=== PATIENT | male | born 1965 | race Caucasian/White ===

== ENCOUNTER → 2018-05-05 | Outpatient (CLI) | payer BC ==
--- NOTE | 2018-05-05 16:57 | NM ---
EXAMINATION TYPE: NM bone scan whole body, NM bone SPECT DATE OF EXAM: 05/05/2018 COMPARISON: Lumbar spine radiograph 04/28/2018 HISTORY: 52-year-old male spondylosis, pain. Wedge compression fracture of L4 lumbar vertebra. Technique: Delayed whole-body scanning was performed following the injection of 24.5 mCi Tc 99m MDP. Images acquired 3 hours post injection. SPECT imaging was performed. FINDINGS: Focal intense abnormal uptake involving the right posterior elements of T10 and linear abnormal incre ased uptake of L4 corresponding to known vertebral compression fracture. There is some degenerative a ctivity at the sternoclavicular joints. No additional suspicious tracer activity is identified. Mild uterine contamination is noted. IMPRESSION: 1. Linear abnormal uptake of L4 compatible with known superior endplate fracture. 2. Focal abnormal uptake involving the right T10 posterior elements. Consider CT or MRI to further ev aluate.
== END | disposition home or self-care (01) ==
LOC: RADNMMAIN 09:45
PROVIDERS: ATTEND Physical Medicine & Rehabilitation
DX: S32.040A Wedge compression fracture of fourth lumbar vertebra, initial encounter for closed fracture (principal); R94.8 Abnormal results of function studies of other organs and systems; M47.817 Spondylosis without myelopathy or radiculopathy, lumbosacral region; M41.26 Other idiopathic scoliosis, lumbar region
CPT/HCPCS: 78306; 78320; A9503

== ENCOUNTER → 2018-05-19 | Outpatient (CLI) | payer BC ==
[2018-05-19 13:35] LABS: Blood Urea Nitrogen 20 mg/dL (9-20)
== END ==
LOC: LABWHC1 12:54
PROVIDERS: ATTEND Physical Medicine & Rehabilitation
DX: Z01.812 Encounter for preprocedural laboratory examination (principal); N28.9 Disorder of kidney and ureter, unspecified
CPT/HCPCS: 36415; 82565; 84520

== ENCOUNTER → 2018-05-28 | Outpatient (CLI) | payer BC ==
--- NOTE | 2018-05-28 13:52 | CT ---
EXAMINATION TYPE: CT thoracic spine wo con DATE OF EXAM: 05/28/2018 COMPARISON: Nuclear medicine SPECT scan 05/05/2018 HISTORY: Wedge compression fracture of unspecified thoracic vertebra CT DLP: 589.9 mGycm Automated exposure control for dose reduction was used. FINDINGS: Vertebral body heights are preserved. Disc heights have mild diffuse narrowing. Vertebral body alignm ent is normal. No suspicious wedge deformity is evident. Minimal wedging of T11 may be present. No ac samish compression deformity is evident however. Exam is compared to the SPECT imaging of 05/05/2018. No suspicious abnormality at the left posterior T10 level is evident. IMPRESSION: 1. CT THORACIC SPINE APPEARS WITHIN NORMAL LIMITS. 2. NO SUSPICIOUS ABNORMALITY AT THE T10 LEVEL TO ACCOUNT FOR THE UPTAKE ON THE NUCLEAR MEDICINE BONE SCAN. THIS MAY BE RELATED TO CHANGES AT THE [place].
== END ==
LOC: RADCTMAIN 09:04
PROVIDERS: ATTEND Physical Medicine & Rehabilitation
DX: S22.000A Wedge compression fracture of unspecified thoracic vertebra, initial encounter for closed fracture (principal)
CPT/HCPCS: 72128

== ENCOUNTER 2020-03-23 13:31 | Inpatient (IN) | payer BC, OTHER ==
[2020-03-23] MEDS ORDERED: SODIUM CHLORIDE 0.9% 1,000 ML IV STA (13:45)
[2020-03-23] MEDS ORDERED: ONDANSETRON 4 MG/2 ML VIAL IVP STA (13:51)
[2020-03-23 13:59] LABS: Glucose,Whole Blood 138 mg/dL (75-99)
--- NOTE | 2020-03-23 14:19 | ED ---
General Adult HPI - General Chief complaint: Weakness Stated complaint: weakness Time Seen by Provider: 03/23/20 13:33 Source: patient, EMS Mode of arrival: EMS Limitations: physical limitation - History of Present Illness Initial comments: Patient is a 54-year-old male with past mental history of hypertension presents emergency department from a [employer]. EMS was called to the store for a patient was weak and sustained a fall. The patient states he's had intractable nausea, vomiting and diarrhea for the past 3 days. He denies hematemesis. No melenic stools or hematochezia. States he possibly could have eaten some tainted foods. Denies any recent travel or sick contacts with similar symptoms. No recent antibiotic use. Denies any abdominal pain. No history of GI bleeding. Denies any fevers or chills. Denies any changes in his urination. He went to a [employer] where he was so weak that his knees gave out on him. Reports that this is common for him to happen. He denies any traumatic injuries from the fall. She presents to the emergency department and is covered from head to toe in fecal material. He denies any chest pain or shortness of breath. No back or flank pain. No other alleviating, precipitating or modifying factors - Related Data Home Medications Medication Instructions Recorded Confirmed No Known Home Medications 03/23/20 03/23/20 Allergies Allergy/AdvReac Type Severity Reaction Status Date / Time No Known Allergies Allergy Verified 03/23/20 16:24 Review of Systems ROS Statement: Those systems with pertinent positive or pertinent negative responses have been documented in the HPI. ROS Other: All systems not noted in ROS Statement are negative. General Exam Limitations: physical limitation General appearance: alert, anxious Head exam: Present: atraumatic, normocephalic Eye exam: Present: PERRL, EOMI ENT exam: Present: mucous membranes dry Neck exam: Absent: tenderness, meningismus Respiratory exam: Present: normal lung sounds bilaterally Cardiovascular Exam: Present: normal rhythm, tachycardia GI/Abdominal exam: Present: soft. Absent: tenderness, guarding, rebound, rigid Rectal exam: Absent: black stool, bloody stool Extremities exam: Present: normal inspection. Absent: tenderness Neurological exam: Present: alert Psychiatric exam: Present: flat affect Skin exam: Present: other (covered in fecal material) Course Vital Signs 03/23/20 03/23/20 03/23/20 13:34 15:19 15:53 Temperature 98.1 F Pulse Rate 133 H 119 H 118 H Respiratory 18 18 18 Rate Blood Pressure 143/128 97/77 95/81 O2 Sat by Pulse 97 94 L 96 Oximetry 03/23/20 03/23/20 17:09 17:48 Temperature 99.5 F 99.0 F Pulse Rate 105 H 115 H Respiratory 18 18 Rate Blood Pressure 125/94 128/104 O2 Sat by Pulse 96 94 L Oximetry EKG Findings - EKG Comments: EKG Findings:: EKG demonstrates sinus tachycardia with ventricular rate of 133. CO interval 118. QRS 94. QTC of 464. No acute ST segment elevation or depression Medical Decision Making - Medical Decision Making Upon arrival patient is placed in room 6. A thorough history and physical exam was performed. Patient is cleaned up. Provided established. Patient was given a 3 L bolus of normal saline followed by 100 mL an hour. Laboratory studies were conducted. Patient was sent for CT the event and pelvis. Laboratory studies are remarkable for a white count 21,000. Platelets are 78. Potassium 2.6. Sodium 135. Magnesium 1.5. She was given 20 mEq of potassium IV. He was also given 40 mg by mouth. Magnesium was replaced. I did recommend hospital admission for which the patient agreed to. Due to his lactic acid being 6.5. He does require ICU admission. I called and discussed the case with Dr. stovall who did accept the patient in the ICU. Patient was transferred in stable condition - Lab Data Result diagrams: 03/25/20 07:43 03/25/20 19:02 Lab Results 03/23/20 03/23/20 03/23/20 Range/Units 13:48 13:52 14:26 WBC 21.0 H (3.8-10.6) k/uL RBC 3.87 L (4.30-5.90) m/uL Hgb 14.2 (13.0-17.5) gm/dL Hct 43.7 (39.0-53.0) % MCV 113.0 H (80.0-100.0) fL MCH 36.8 H (25.0-35.0) pg MCHC 32.6 (31.0-37.0) g/dL RDW 14.2 (11.5-15.5) % Plt Count 78 L (150-450) k/uL Neutrophils % 93 % Lymphocytes % 4 % Monocytes % 3 % Eosinophils % 0 % Basophils % 0 % Neutrophils # 19.5 H (1.3-7.7) k/uL Lymphocytes # 0.8 L (1.0-4.8) k/uL Monocytes # 0.6 (0-1.0) k/uL Eosinophils # 0.0 (0-0.7) k/uL Basophils # 0.0 (0-0.2) k/uL Macrocytosis Marked A Sodium (137-145) mmol/L Potassium (3.5-5.1) mmol/L Chloride (98-107) mmol/L Carbon Dioxide (22-30) mmol/L Anion Gap mmol/L BUN (9-20) mg/dL Creatinine (0.66-1.25) mg/dL Est GFR (CKD-EPI)AfAm (>60 ml/min/1.73 sqM) Est GFR (CKD-EPI)NonAf (>60 ml/min/1.73 sqM) Glucose (74-99) mg/dL POC Glucose (mg/dL) 138 H (75-99) mg/dL POC Glu Sash Repairer ID Herron, Leslye Lactic Ac Sepsis Rflx Plasma Lactic Acid [place] 6.5 H* (0.7-2.0) mmol/L Calcium (8.4-10.2) mg/dL Magnesium (1.6-2.3) mg/dL Total Bilirubin (0.2-1.3) mg/dL AST (17-59) U/L ALT (4-49) U/L Alkaline Phosphatase (38-126) U/L Total Protein (6.3-8.2) g/dL Albumin (3.5-5.0) g/dL Lipase (23-300) U/L Urine Color Urine Appearance (Clear) Urine pH (5.0-8.0) Ur Specific [place] (1.001-1.035) Urine Protein (Negative) Urine Glucose (UA) (Negative) Urine Ketones (Negative) Urine Blood (Negative) Urine Nitrite (Negative) Urine Bilirubin (Negative) Urine Urobilinogen (<2.0) mg/dL Ur Leukocyte Esterase (Negative) Urine RBC (0-5) /hpf Urine WBC (0-5) /hpf Ur Squamous Epith Cells (0-4) /hpf Amorphous Sediment (None) /hpf Hyaline Casts (0-2) /lpf Urine Mucus (None) /hpf Serum Alcohol mg/dL 03/23/20 03/23/20 03/23/20 Range/Units 14:26 14:26 15:07 WBC (3.8-10.6) k/uL RBC (4.30-5.90) m/uL Hgb (13.0-17.5) gm/dL Hct (39.0-53.0) % MCV (80.0-100.0) fL MCH (25.0-35.0) pg MCHC (31.0-37.0) g/dL RDW (11.5-15.5) % Plt Count (150-450) k/uL Neutrophils % % Lymphocytes % % Monocytes % % Eosinophils % % Basophils % % Neutrophils # (1.3-7.7) k/uL Lymphocytes # (1.0-4.8) k/uL Monocytes # (0-1.0) k/uL Eosinophils # (0-0.7) k/uL Basophils # (0-0.2) k/uL Macrocytosis Sodium 135 L (137-145) mmol/L Potassium 2.6 L* (3.5-5.1) mmol/L Chloride 95 L (98-107) mmol/L Carbon Dioxide 30 (22-30) mmol/L Anion Gap 10 mmol/L BUN 10 (9-20) mg/dL Creatinine 0.85 (0.66-1.25) mg/dL Est GFR (CKD-EPI)AfAm >90 (>60 ml/min/1.73 sqM) Est GFR (CKD-EPI)NonAf >90 (>60 ml/min/1.73 sqM) Glucose 125 H (74-99) mg/dL POC Glucose (mg/dL) (75-99) mg/dL POC Glu Sash Repairer ID Lactic Ac Sepsis Rflx Y Plasma Lactic Acid [place] (0.7-2.0) mmol/L Calcium 8.4 (8.4-10.2) mg/dL Magnesium 1.5 L (1.6-2.3) mg/dL Total Bilirubin 1.7 H (0.2-1.3) mg/dL AST 51 (17-59) U/L ALT 29 (4-49) U/L Alkaline Phosphatase 71 (38-126) U/L Total Protein 5.9 L (6.3-8.2) g/dL Albumin 3.2 L (3.5-5.0) g/dL Lipase 66 (23-300) U/L Urine Color Yellow Urine Appearance Cloudy (Clear) Urine pH 7.5 (5.0-8.0) Ur Specific [place] 1.012 (1.001-1.035) Urine Protein 2+ H (Negative) Urine Glucose (UA) 1+ H (Negative) Urine Ketones Trace H (Negative) Urine Blood Negative (Negative) Urine Nitrite Negative (Negative) Urine Bilirubin Negative (Negative) Urine Urobilinogen 2.0 (<2.0) mg/dL Ur Leukocyte Esterase Negative (Negative) Urine RBC 1 (0-5) /hpf Urine WBC 4 (0-5) /hpf Ur Squamous Epith Cells 1 (0-4) /hpf Amorphous Sediment Rare H (None) /hpf Hyaline Casts 15 H (0-2) /lpf Urine Mucus Few H (None) /hpf Serum Alcohol <10 mg/dL Disposition Clinical Impression: Nausea & vomiting, Acute diarrhea, Leukocytosis, Colitis, Tachycardia Disposition: ADMITTED IP TO THIS [facility] Condition: Serious Is patient prescribed a controlled substance at d/c from ED?: No Decision to Admit Reason: Admit from EC Decision Date: 03/23/20 Decision Time: 16:05
[2020-03-23 14:53] LABS: Amorphous Sediment,Urine Rare /hpf; Appearance,Urine Cloudy (Clear); Bilirubin,Urine Negative (Negative); Blood,Urine Negative (Negative); Color,Urine Yellow; Glucose,Urine (UA) 1+ (Negative); Hyaline Casts,Urine 15 /lpf (0-2); Ketones,Urine Trace (Negative); Leukocyte Esterase,Urine Negative (Negative); Mucus,Urine Few /hpf; Nitrite,Urine Negative (Negative); PH, Urine 7.5 (5.0-8.0); Protein,Urine 2+ (Negative); RBC,Urine 1 /hpf (0-5); Specific Gravity,Urine 1.012 (1.001-1.035); Squamous Epithelial Cell,Urine 1 /hpf (0-4); WBC,Urine 4 /hpf (0-5)
--- NOTE | 2020-03-23 14:53 | XR ---
EXAMINATION TYPE: XR chest 2V DATE OF EXAM: 03/23/2020 COMPARISON: NONE HISTORY: Pain from fall injury. TECHNIQUE: Frontal and lateral views of the chest are obtained. FINDINGS: There is background Chronic emphysematous and pulmonary fibrotic changes bilaterally witho ut suspicious focal air space opacity, pleural effusion, or pneumothorax seen. Elevated left hemidiap hragm is noted. The cardiac silhouette size is within normal limits. Age-indeterminate suspected sub acute or chronic fractures of the right posterior sixth through ninth ribs. Correlate clinically. IMPRESSION: As above.
[2020-03-23 14:56] LABS: AST 51 U/L (17-59); African American GFR (CKD) >90 (>60 ml/min/1.73 sqM); Albumin 3.2 g/dL (3.5-5.0); Alcohol <10 mg/dL; Alkaline Phosphatase 71 U/L (38-126); Anion Gap 10 mmol/L; Blood Urea Nitrogen 10 mg/dL (9-20); Calcium 8.4 mg/dL (8.4-10.2); Carbon Dioxide 30 mmol/L (22-30); Chloride 95 mmol/L (98-107); Glucose 125 mg/dL (74-99); Magnesium 1.5 mg/dL (1.6-2.3); Non-African American GFR(CKD) >90 (>60 ml/min/1.73 sqM); Sodium 135 mmol/L (137-145); Total Bilirubin 1.7 mg/dL (0.2-1.3); Total Protein 5.9 g/dL (6.3-8.2)
[2020-03-23 15:01] LABS: Basophils % (A) 0 %; Eosinophils % (A) 0 %; HCT 43.7 % (39.0-53.0); HGB 14.2 gm/dL (13.0-17.5); Lymphocytes # (A) 0.8 k/uL (1.0-4.8); Lymphocytes % (A) 4 %; MCH 36.8 pg (25.0-35.0); MCHC 32.6 g/dL (31.0-37.0); Macrocytosis Marked; Mean Platelet Volume 11.9; Monocytes # (A) 0.6 k/uL (0-1.0); Monocytes % (A) 3 %; Neutrophils # (A) 19.5 k/uL (1.3-7.7); Neutrophils % (A) 93 %; RBC 3.87 m/uL (4.30-5.90); RDW 14.2 % (11.5-15.5)
[2020-03-23 15:02] LABS: ALT 29 U/L (4-49)
[2020-03-23 15:07] LABS: Potassium 2.6 mmol/L (3.5-5.1)
--- NOTE | 2020-03-23 15:17 | CT ---
EXAMINATION TYPE: CT abdomen pelvis w con DATE OF EXAM: 03/23/2020 COMPARISON: None. HISTORY: Abdominal pain, nausea, vomiting, cough CT DLP: 802.4 mGycm, Automated Exposure Control for Dose Reduction was Utilized. CONTRAST: CT scan of the abdomen and pelvis is performed without oral but with IV Contrast, patient injected wi th 100 mL of Isovue 300. FINDINGS: LUNG BASES: Respiratory motion artifact degradation. Tiny pericardial effusion. LIVER/GB: Visualized liver is upper limits of normal in size and heterogeneously hypodense consistent with diffuse fatty infiltration. PANCREAS: No significant abnormality is seen. SPLEEN: No significant abnormality is seen. ADRENALS: No significant abnormality is seen. KIDNEYS: Delayed imaging either not performed or not sent to PACS. BOWEL: Distal esophagus show [id number] wall thickening with small sized hiatal hernia inferi or to this. Nonemergent follow-up advised. Suboptimal evaluation of bowel without enteric contrast. N o suspicious small and large bowel dilatation. Fluid is noted in the cecum. Mild to moderate wall thi ckening in portions of the left and sigmoid colon extending into rectum where there is abnormal intra luminal fluid. Findings could be product of diarrhea and/or colitis. Additional mild wall thickening near the hepatic flexure. PROSTATE/SEMINAL VESICLES: Normal-sized prostate. Scattered bilateral pelvic phleboliths. LYMPH NODES: No greater than 1cm abdominal or pelvic lymph nodes are appreciated. OSSEOUS STRUCTURES: Mild height loss and L4 vertebra which is sclerotic consistent with subacute or c hronic fracture. Slight posterior retropulsion superior L4 level effaces the anterior thecal sac sagi ttal image 61. OTHER: Small fat-containing right inguinal hernia. IMPRESSION: 1. [id number] multifocal uncomplicated acute colitis and/or diarrhea. 2. Small hiatal hernia. Moderate to severe wall thickening of the distal esophagus proximal to this. Nonemergent direct visualization is advised to assess for inflammation and exclude neoplasm.
[2020-03-23 15:32] LABS: Platelet Count 78 k/uL (150-450)
[2020-03-23] MEDS ORDERED: POTASSIUM CHLORIDE 20 MEQ in WATER FOR INJECTION 1 100ML.BAG IVPB STA (15:43)
[2020-03-23] MEDS ORDERED: POTASSIUM CHLORIDE ER 20 MEQ TAB.ER PO STA (15:43)
[2020-03-23] MEDS ORDERED: SODIUM CHLORIDE 0.9% 2,000 ML IV ONE (15:44)
[2020-03-23] MEDS ORDERED: PIPERACILLIN-TAZOBACTAM 3.375 GM in SODIUM CHLORIDE 0.9% 100 ML IVPB STA (15:53)
[2020-03-23] MEDS: MAGNESIUM SULFATE-D5W PMX 1 GM in DEXTROSE/WATER 1 100ML.BAG IVPB SCH ×2 (16:00→20:56)
[2020-03-23] MEDS ORDERED: NALOXONE 0.4 MG/ML 1 ML VIAL IV PRN (16:05)
[2020-03-23] MEDS: SODIUM CHLORIDE 0.9% 1,000 ML IV SCH (16:59)
[2020-03-23 17:48] LABS: Glucose,Whole Blood 106 mg/dL (75-99)
[2020-03-23] MEDS ORDERED: Potassium Replacement Protocol 1 EACH MISC MISCELLANE PRN (18:33)
[2020-03-23] MEDS ORDERED: Magnesium Replacement Protocol 1 EACH MISC MISCELLANE PRN (18:33)
[2020-03-23] MEDS ORDERED: HYDROcodone/APAP 5-325MG 1 EACH TAB PO PRN (18:34)
[2020-03-23] MEDS ORDERED: THIAMINE 100 MG/ML 2 ML VIAL IM STA (18:34)
[2020-03-23] MEDS ORDERED: LORazepam 2 MG/ML INJ IV PRN ×3 (18:34)
[2020-03-23 19:51] LABS: INR 1.1 (<1.2); Prothrombin Time 11.3 sec (9.0-12.0)
--- NOTE | 2020-03-23 20:08 | HP ---
HISTORY AND PHYSICAL CHIEF COMPLAINTS: Nausea, vomiting, diarrhea as well as weakness. HISTORY OF PRESENT ILLNESS: This 54-year-old gentleman with a past medical history of hypertension, history of nicotine dependence, history of THC, being followed by Dr. Mccallum in the outpatient setting, was found have significant weakness. The patient was taken to [facility] and was admitted for further evaluation and treatment. The patient was found to be covered in feces from head to toe and also had multiple excoriations on the back. The patient is confused. The patient apparently was taking alcohol up to half a pint a day. The patient was also very noncompliant with medications. The patient had multiple laboratory abnormalities at the time of admission which was probably suggestive of sepsis and severe hypokalemia. The patient was dehydrated. Fluids were replenished. Lactic acid 6.5. The patient also had possible colitis on the CT scan. The patient was admitted for further evaluation and treatment. Alcohol was less than 10. White count was elevated at 21. There is no history of any fever, rigor or chills. The patient is slightly confused. A detailed history cannot be taken from the patient. Most of the history is taken from my discussion with staff and review of the chart and discussion with the ER physician. PAST MEDICAL HISTORY: Hypertension, noncompliance. MEDICATIONS PRIOR TO ADMISSION: Unknown. ALLERGIES: NONE. Family history, social history, review of systems could not be taken because of change in mental status. Smoking and alcohol and THC as before. PHYSICAL EXAMINATION: Patient is conscious, mildly confused. Pulse is 115, blood pressure 128/104, respiration 18, temperature 99 degrees, pulse ox 94% on room air. HEENT: Conjunctivae normal. Oral mucosa moist. NECK: No jugular venous distention. No carotid bruit. No lymph node enlargement. CARDIOVASCULAR SYSTEM: S1, S2 muffled. No S3. No S4. RESPIRATORY SYSTEM: Breath sounds diminished at the bases. A few scattered rhonchi and crackles. ABDOMEN: Soft, non-tender. No mass palpable. LEGS: No edema. No swelling. NERVOUS SYSTEM: Higher functions as mentioned earlier. Moves all 4 limbs. No focal motor or sensory deficit. LYMPHATICS: No lymph node palpable in neck, axillae or groin. SKIN: No ulcer, rash, bleeding. JOINTS: No active deforming arthropathy. LABS: Labs at this time show WBC 21 and MCV 113. Sodium is 135, potassium 2.6 and glucose 125. Lactic acid 6.5, magnesium 1.5, bilirubin 1.7. UA noted. ASSESSMENT: 1. Possible sepsis with undetermined etiology. 2. Change in mental status, metabolic encephalopathy, multifactorial. 3. Severe dehydration, probably secondary to diarrhea. 4. Acute colitis with possible sepsis. 5. Hyponatremia. 6. Severe hypokalemia. 7. Elevated lactic acid. 8. Change in mental status, metabolic encephalopathy, multifactorial. 9. History of ETOH, possibly. 10.Increased white count. 11.Increased mean corpuscular volume. 12.Thrombocytopenia. 13.Hypomagnesemia. 14.Hypoalbuminemia. 15.Hypertension history. 16.History of nicotine dependence. 17.History of tetrahydrocannabinol. RECOMMENDATIONS AND DISCUSSION: In this 54-year-old gentleman who presented with multiple complex medical issues, we will monitor the patient closely, continue the current medications, continue with symptomatic treatment. Will initiate broad-spectrum IV antibiotics. Otherwise I would also recommend a CT of the brain. Obtain blood cultures. PT/OT evaluation, possible ECF rehab. The patient has significant weakness. The patient will also possibly need alcohol withdrawal protocol. CIWA protocol has been suggested and outpatient counseling and rehab admission also are possibilities. Overall prognosis is extremely guarded because of multiple complex medical issues, as mentioned earlier. A copy of this dictation is being forwarded to Dr. Mccallum, who is the primary physician. MMYOBANYL / KINN: [id number] /
[2020-03-23] MEDS: THIAMINE 100 MG TAB PO SCH (20:52)
[2020-03-23] MEDS: HEPARIN SODIUM,PORCINE 5,000 UNIT/ML 1 ML VIAL SQ SCH (20:57)
[2020-03-23 22:21] LABS: African American GFR (CKD) >90 (>60 ml/min/1.73 sqM); Anion Gap 3 mmol/L; Blood Urea Nitrogen 9 mg/dL (9-20); Calcium 7.6 mg/dL (8.4-10.2); Carbon Dioxide 30 mmol/L (22-30); Chloride 101 mmol/L (98-107); Glucose 94 mg/dL (74-99); Non-African American GFR(CKD) >90 (>60 ml/min/1.73 sqM); Sodium 134 mmol/L (137-145)
[2020-03-23 22:29] LABS: Potassium 2.7 mmol/L (3.5-5.1)
[2020-03-23] MEDS: POTASSIUM CHLORIDE ER 20 MEQ TAB.ER PO SCH (23:33)
[2020-03-23] MEDS: PIPERACILLIN-TAZOBACTAM 3.375 GM in SODIUM CHLORIDE 0.9% 100 ML IVPB SCH (23:33)
[2020-03-24] MEDS: POTASSIUM CHLORIDE ER 20 MEQ TAB.ER PO SCH ×2 (00:39→01:00)
[2020-03-24] MEDS: SODIUM CHLORIDE 0.9% 1,000 ML IV SCH (06:58)
[2020-03-24 07:14] LABS: Basophils % (A) 0 %; Eosinophils % (A) 0 %; HCT 37.3 % (39.0-53.0); HGB 11.8 gm/dL (13.0-17.5); Lymphocytes # (A) 1.2 k/uL (1.0-4.8); Lymphocytes % (A) 8 %; MCH 36.2 pg (25.0-35.0); MCHC 31.7 g/dL (31.0-37.0); MCV 114.4 fL (80.0-100.0); Macrocytosis Marked; Mean Platelet Volume 11.3; Monocytes # (A) 0.8 k/uL (0-1.0); Monocytes % (A) 5 %; Neutrophils # (A) 12.9 k/uL (1.3-7.7); Neutrophils % (A) 86 %; RBC 3.27 m/uL (4.30-5.90); RDW 13.9 % (11.5-15.5); WBC 15.1 k/uL (3.8-10.6)
[2020-03-24 07:22] LABS: Platelet Count 61 k/uL (150-450)
[2020-03-24 07:28] LABS: African American GFR (CKD) >90 (>60 ml/min/1.73 sqM); Anion Gap 9 mmol/L; Blood Urea Nitrogen 9 mg/dL (9-20); Calcium 7.8 mg/dL (8.4-10.2); Carbon Dioxide 26 mmol/L (22-30); Chloride 102 mmol/L (98-107); Glucose 70 mg/dL (74-99); Magnesium 1.9 mg/dL (1.6-2.3); Non-African American GFR(CKD) >90 (>60 ml/min/1.73 sqM); Potassium 3.2 mmol/L (3.5-5.1); Sodium 137 mmol/L (137-145)
[2020-03-24] MEDS: NICOTINE 14MG/24HR PATCH TRANSDERM SCH (10:25)
[2020-03-24] MEDS: MULTIVITAMINS, THERA 1 EACH TAB PO SCH (10:26)
[2020-03-24] MEDS: HEPARIN SODIUM,PORCINE 5,000 UNIT/ML 1 ML VIAL SQ SCH ×2 (10:26→21:15)
[2020-03-24] MEDS: THIAMINE 100 MG TAB PO SCH ×2 (10:26→18:17)
[2020-03-24] MEDS: PANTOPRAZOLE 40 MG TABLET PO SCH (10:26)
[2020-03-24] MEDS: PIPERACILLIN-TAZOBACTAM 3.375 GM in SODIUM CHLORIDE 0.9% 100 ML IVPB SCH ×2 (10:26→18:19)
[2020-03-24] MEDS ORDERED: QUEtiapine 50 MG TAB PO PRN (10:58)
[2020-03-24] MEDS ORDERED: HALOPERIDOL LACTATE 5 MG/ML 1 ML VIAL IM PRN (10:58)
[2020-03-24 11:23] VITALS: BMI 21.4
--- NOTE | 2020-03-24 12:39 | P.CNPUL ---
History of Present Illness Consult date: 03/24/20 Chief complaint: generalized weakness History of present illness: a 54-year-old male patient who was feeling very weak and he collapsed in a [employer] where he was trying to buy some punch juice for hydration. Apparently the patient was having ongoing nausea and vomiting and diarrhea for the past several days. He was getting progressively more dehydrated and weak. He denies having any abdominal pain. No reported fever chills or night sweats. No chest pain. No shortness of breath. There is no clear history of alcoholism although we were suspicious. The patient came into the emergency department and and the patient a low platelet count of 78 with a hemoglobin of 14.2. Potassium level was low at 2.6 and the serum bicarb was at 30 with a BUN of 10 and a creatinine of 0.5.the patient lactic acid level was at 6.5. The patient had normal LFTs, normal amylase and lipase, serum albumin was down to 3.2 with a total protein of 5.9.the urinalysis was positive for protein +2, positive for glucose +1 with 4 wbc's and 1 RBC. Stool was checked for C. diff and was negative. The borrero virus: 19 PCR testing came back also negative. Overnight, the patient was given a total of 3 L of IV fluids and currently normal saline is running at the rate of 100 mL an hour. Overnight the patient was also felt to be confused and he was placed on the CIWA protocol and he was given Ativan on a when necessary basis. Note that CAT scan of the abdomen and pelvis that was done in the ED showed colitis. There was mild to moderate multifocal on complicated acute colitis which is inconsistent with his symptoms of diarrhea. There was a small hiatal hernia and moderate to severe wall thickening of the distal esophagus. Noted along with fluid hydration, his lactic acid level is improved. This morning is fully awake and alert and following commands and answering questions. He denies drinking alcohol in excesscreatinine IV Zosyn as an empiric antibiotic coverage. Review of Systems Constitutional: Reports fatigue, Reports weakness Eyes: denies as per HPI, denies blurred vision, denies bulging eye, denies decreased vision, denies diplopia, denies discharge, denies dry eye, denies irritation, denies itching, denies pain, denies photophobia, denies loss of peripheral vision, denies loss of vision, denies tunnel vision/blind spots Ears: deny: decreased hearing, ear discharge, earache, tinnitus Ears, nose, mouth and throat: Reports as per HPI Breasts: absent: as per HPI, gynecomastia Cardiovascular: Reports as per HPI Respiratory: Reports as per HPI Gastrointestinal: Reports nausea, Reports vomiting Genitourinary: Reports as per HPI Musculoskeletal: Reports as per HPI Musculoskeletal: absent: ankle pain, ankle stiffness, ankle swelling Integumentary: Reports as per HPI Neurological: Reports as per HPI, Reports weakness Psychiatric: Reports as per HPI Endocrine: Reports as per HPI, Reports fatigue Hematologic/Lymphatic: Reports as per HPI Allergic/Immunologic: Reports as per HPI Past Medical History Past Medical History: Hypertension Additional Past Medical History / Comment(s): Alcoholism, B/L lower extremities are extremely weakened, pt stated started over year ago, "limps around place to place"- this is unexplained per pt.the patient has history of hypertension patient has been taking losartan under the care of Dr. Nohemy RATLIFF History of Any Multi-Drug Resistant Organisms: None Reported Past Surgical History: No Surgical Hx Reported Smoking Status: Current every day smoker Medications and Allergies Home Medications Medication Instructions Recorded Confirmed Type No Known Home Medications 03/23/20 03/23/20 History Allergies Allergy/AdvReac Type Severity Reaction Status Date / Time No Known Allergies Allergy Verified 03/23/20 16:24 Physical Exam Vitals: Vital Signs Temp Pulse Pulse Pulse Resp BP BP 03/24/20 04:00 99.6 F 96 16 139/99 03/24/20 00:00 99.6 F 104 H 18 127/91 03/23/20 20:00 99.3 F 100 102 H 20 123/86 03/23/20 19:00 113 H 13 03/23/20 18:30 114 H 29 H 128/104 03/23/20 18:00 112 H 10 L 03/23/20 17:48 99.0 F 115 H 18 128/104 03/23/20 17:09 99.5 F 105 H 18 125/94 03/23/20 15:53 118 H 18 95/81 03/23/20 15:19 119 H 18 97/77 03/23/20 13:34 98.1 F 133 H 18 143/128 Pulse Ox 03/24/20 04:00 96 09/17/20 00:00 96 03/23/20 20:00 97 03/23/20 19:00 03/23/20 18:30 03/23/20 18:00 03/23/20 17:48 94 L 03/23/20 17:09 96 03/23/20 15:53 96 03/23/20 15:19 94 L 03/23/20 13:34 97 Intake and Output 03/23/20 03/24/20 03/24/20 22:59 06:59 14:59 Intake Total 350 1880 300 Output Total 0 Balance 350 1880 300 Intake: IV 300 800 300 NS @ 100 300 800 300 Intake, IV Titration 50 Amount Piperacillin-Tazobactam 3 50 .375 gm In Sodium Chloride 0.9% 100 ml @ 200 mls/hr IVPB ONCE STA Rx#:[id number] Oral 1080 Output: Urine 0 Other: # Voids 0 1 2 # Bowel Movements 2 2 2 Weight 83.915 kg 71.5 kg Gen. exam, calm comfortable and the patient is on acute respiratory distress Head exam was generally normal. There was no scleral icterus or corneal arcus. Mucous membranes were moist. Neck was supple and without jugular venous distension, thyromegaly, or carotid bruits. Carotids were easily palpable bilaterally. There was no adenopathy. Lungs are diminished otherwise breath sounds equal and symmetrical bilaterally. Cardiac exam revealed the PMI to be normally situated and sized. The rhythm was regular and no extrasystoles were noted during several minutes of auscultation. The first and second heart sounds were normal and physiologic splitting of the second heart sound was noted. There were no murmurs, rubs, clicks, or gallops. Abdominal exam revealed normal bowel sounds. The abdomen was soft, non-tender, and without masses, organomegaly, or appreciable enlargement of the abdominal aorta. Examination of the extremities revealed easily palpable radial, femoral and pedal pulses. There was no cyanosis, clubbing or edema. Examination of the skin revealed no evidence of significant rashes, suspicious appearing nevi or other concerning lesions. Neurologically the patient is awake and alert and the patient has generalized motor weakness all 4 extremities. I did not appreciate any confusion and altered mentation at time of my evaluation. Results - Laboratory Findings CBC and BMP: 03/24/20 06:40 03/24/20 06:40 PT/INR, D-dimer PT 11.3 sec (9.0-12.0) 03/23/20 19:09 INR 1.1 (<1.2) 03/23/20 19:09 Abnormal lab findings: Abnormal Labs 03/23/20 03/23/20 03/23/20 13:48 13:52 14:26 WBC 21.0 H RBC 3.87 L Hgb Hct MCV 113.0 H MCH 36.8 H Plt Count 78 L Neutrophils # 19.5 H Lymphocytes # 0.8 L Macrocytosis Marked A Sodium Potassium Chloride Glucose POC Glucose (mg/dL) 138 H Plasma Lactic Acid Thiago 6.5 H* Calcium Magnesium Total Bilirubin Total Protein Albumin Urine Protein Urine Glucose (UA) Urine Ketones Amorphous Sediment Hyaline Casts Urine Mucus 03/23/20 03/23/20 03/23/20 14:26 14:26 17:46 WBC RBC Hgb Hct MCV MCH Plt Count Neutrophils # Lymphocytes # Macrocytosis Sodium 135 L Potassium 2.6 L* Chloride 95 L Glucose 125 H POC Glucose (mg/dL) 106 H Plasma Lactic Acid Thiago Calcium Magnesium 1.5 L Total Bilirubin 1.7 H Total Protein 5.9 L Albumin 3.2 L Urine Protein 2+ H Urine Glucose (UA) 1+ H Urine Ketones Trace H Amorphous Sediment Rare H Hyaline Casts 15 H Urine Mucus Few H 03/23/20 03/24/20 03/24/20 21:47 06:40 06:40 WBC 15.1 H RBC 3.27 L Hgb 11.8 L Hct 37.3 L MCV 114.4 H MCH 36.2 H Plt Count 61 L Neutrophils # 12.9 H Lymphocytes # Macrocytosis Marked A Sodium 134 L Potassium 2.7 L* 3.2 L Chloride Glucose 70 L POC Glucose (mg/dL) Plasma Lactic Acid Thiago Calcium 7.6 L 7.8 L Magnesium Total Bilirubin Total Protein Albumin Urine Protein Urine Glucose (UA) Urine Ketones Amorphous Sediment Hyaline Casts Urine Mucus - Diagnostic Findings Chest x-ray: image reviewed Assessment and Plan Plan: 1 acute generalized colitis with secondary nausea vomiting and intravascular volume depletion dehydration. 2 mild lactic acidosis, improving 3 dehydration secondary to above, improving and the patient has been resuscitated IV fluids 4 electrolyte imbalance secondary to diarrhea and electrodes are being replaced 5 history of alcoholism 6 altered mentation, improved. Rule out underlying metabolic encephalopathy. Rule out underlying delirium tremens. 7 hypertension 9 history of smoking Plan continue with IV fluids and the patient will be kept on saline at the rate of 100 mL an hour No need for pressors Continue IV Zosyn Monitor mental status Watch for any signs of delirium tremens Consult gastroenterology regarding the ongoing nausea and emesis in addition to possible pneumonitis in the distal esophagus as mentioned on the CAT scan. He may need colonoscopy/EGD Stool for C. diff has been negative We'll continue to follow.
--- NOTE | 2020-03-24 13:28 | PN ---
PROGRESS NOTE DATE OF SERVICE: 03/24/2020 This is a 54-year-old gentleman who was admitted with possible sepsis, also had possible colitis. Patient also had confusion and the patient also had possible metabolic encephalopathy. Patient also had history of fall. The sensorium remains slightly improved today. The white count is still elevated to 15.1, potassium is 3.2 from 2.7. C diff is negative. The abdominal, pelvis CT scan was reviewed. CT scan of the head is not available. PAST MEDICAL HISTORY: Reviewed. REVIEW OF SYSTEMS: CARDIOVASCULAR SYSTEM: No angina or palpitation. RESPIRATION: As mentioned earlier. GI: As mentioned earlier. : No dysuria. NERVOUS SYSTEM: No numbness. Otherwise as mentioned earlier. CURRENT MEDICATIONS: Reviewed include: 1. [place] 5 mg. 2. Haldol. 3. Heparin. 4. Ativan. 5. Replacement protocols. 6. Multivitamins. 7. Narcan. 8. Habitrol 14. 9. Protonix. 10.Zosyn. 11.Seroquel. 12.vitamin B1. PHYSICAL EXAM: Patient is alert, oriented x3. Pulse is 98, blood pressure 130/90, respiration 20, temperature 98.1, pulse ox 98% on room air. HEENT: Conjunctivae normal. Oral mucosa moist. NECK: Ns no jugular venous distention. No lymph node enlargement. CARDIOVASCULAR: S1, S2, muffled. RESPIRATION: Breath sounds diminished at the bases, a few scattered rhonchi, no crackles. ABDOMEN: Soft, nontender. No mass palpable. Obese. Mild diffuse discomfort. LEGS: No edema, no swelling. NERVOUS SYSTEM: No focal deficits. LABS: WBC is 15.2, hemoglobin is 11.8. Marked macrocytosis. Sodium 130, potassium 2.7, C diff is negative. ASSESSMENT: 1. Possible acute colitis with sepsis present on admission. 2. Severe dehydration present on admission. 3. Change in mental status, metabolic encephalopathy, multifactorial. 4. Hyponatremia. 5. Severe hypokalemia. 6. Elevated lactic acid. 7. History of EtOH possibly. 8. Increased WBC. 9. Increased MCV. 10.Thrombocytopenia. 11.Hypomagnesemia. 12.Hypoalbuminemia. 13.Hypertension history. 14.History of nicotine dependence. 15.History of THC. 16.FULL CODE. RECOMMENDATION: In This 54-year-old gentleman who presented with multiple medical issues, at this time I recommend to continue current medications, continue current management and C difficile negative: COVID-19 is also negative. I would recommend continue the broad- spectrum IV antibiotics and I would also recommend a CT scan of the brain to evaluate and complete the workup. The patient is on IV Zosyn. Cultures are pending at this time. I would also recommend UA with micro. Otherwise, repeat labs. Closely monitor. Continue with CIWA protocol, p.r.brett Prater. The patient will be able to go to Med Surg for continued monitoring at this time. Prognosis guarded. Discussed with staff, discussed with patient. Further recommendations to follow. MMODL / IJN: [id number] /
[2020-03-24 14:45] LABS: Appearance,Urine Clear (Clear); Bilirubin,Urine Negative (Negative); Blood,Urine Moderate (Negative); Color,Urine Yellow; Glucose,Urine (UA) Negative (Negative); Ketones,Urine 2+ (Negative); Leukocyte Esterase,Urine Negative (Negative); Mucus,Urine Rare /hpf; Nitrite,Urine Negative (Negative); Protein,Urine Trace (Negative); RBC,Urine 86 /hpf (0-5); Specific Gravity,Urine 1.028 (1.001-1.035); Squamous Epithelial Cell,Urine <1 /hpf (0-4); Urobilinogen,Urine <2.0 mg/dL (<2.0); WBC,Urine 8 /hpf (0-5)
--- NOTE | 2020-03-24 20:24 | CT ---
EXAMINATION TYPE: CT brain wo con DATE OF EXAM: 03/24/2020 COMPARISON: None HISTORY: Patient poor historian CT DLP: 1232.4 mGycm Automated exposure control for dose reduction was used. There is cerebral cortical atrophy. There is no mass effect nor midline shift. There is no sign of in tracranial hemorrhage. The calvarium is intact. IMPRESSION: There is moderately severe cerebral atrophy for the patient's age. No acute intracranial abnormality.
[2020-03-25] MEDS: PIPERACILLIN-TAZOBACTAM 3.375 GM in SODIUM CHLORIDE 0.9% 100 ML IVPB SCH ×3 (00:25→15:50)
--- NOTE | 2020-03-25 01:07 | CONS ---
CONSULTATION DATE OF DICTATION: 03/24/2020 REASON FOR CONSULTATION: Abnormal CT scan of the abdomen, generalized weakness and diarrhea. HISTORY OF PRESENT ILLNESS: The patient is a 54-year-old white male who was admitted to hospital because of progressive weakness. Apparently, he was at a [employer] store, he collapsed, fell down and injured himself and subsequently ambulance was called and patient was brought into the emergency room. At the time of admission to the hospital, he was somewhat slightly confused but subsequently his symptoms resolved. He has been complaining of diarrhea for the last 2 weeks duration, has about 4 to 5 loose watery bowel movements daily. No blood or mucus in the stool. He denies any associated abdominal pain. He denies any dysphagia or odynophagia. In the emergency room, he did have a CT of the abdomen and pelvis done that showed moderate to severe thickening of the mid and distal esophagus as well as thickening of the sigmoid colon suspicious for colitis. He, however, denies any dysphagia, odynophagia. No heartburn. No recent weight loss. He denies any alcohol use. He reports no recent NSAID use. No prior history of peptic ulcer disease. PAST MEDICAL HISTORY: Hypertension. PAST SURGICAL HISTORY: None. SOCIAL HISTORY: Chronic smoker, but no alcohol use. FAMILY HISTORY: Unremarkable. MEDICATIONS AT HOME: None. ALLERGIES: No known drug allergies. REVIEW OF SYSTEMS: CARDIOPULMONARY: No chest pain, no shortness of breath. GENITOURINARY: No dysuria or hematuria. MUSCULOSKELETAL: He has some lower extremity pain. NEUROLOGY: Unremarkable. PSYCHIATRIC: Unremarkable. ENT/VISION: Unremarkable. CONSTITUTIONAL: No recent weight loss. No fever, chills, night sweats. HEMATOLOGY: Unremarkable. ENT/VISION: Unremarkable. PHYSICAL EXAMINATION: He appears comfortable. No apparent distress. Vital signs are stable. Blood pressure is 127/99, pulse rate 98, temperature 98.1. HEENT EXAMINATION: Unremarkable. Conjunctivae pink. Sclerae anicteric. Oral cavity no lesions. NECK: No JVD or lymph node enlargement. CHEST: Clear to auscultation. HEART: Regular rate and rhythm. ABDOMEN: Soft. It was nontender, nondistended. Bowel sounds are positive. No organomegaly. EXTREMITIES: No pedal edema. NEURO: He is alert and oriented x3. No focal deficits. LABS: WBC 21, hemoglobin 14, platelets 78,000. Repeat labs today WBC 15.1, hemoglobin 11.8, platelets 61. MCV is 113. T bilirubin 1.7. AST, ALT normal. Alkaline phosphatase is normal. Amylase and lipase are normal. CT of the abdomen and pelvis done showed moderate to severe thickening of the mid and distal esophagus, mild to moderate multifocal uncomplicated acute colitis and small hiatal hernia. IMPRESSION: 1. Diarrhea for the last 2 weeks duration. The patient has been having 4 to 5 loose bowel movements daily. No blood or mucus in the stool. He did have stool for Clostridium difficile toxin that was reported as negative. No recent travel history or antibiotic use. No prior history of colonoscopy. Rule out infectious etiology. 2. Progressive weakness. 3. Abnormal CAT scan showing [id number] thickening of the mid and distal esophagus, but patient does not have any upper gastrointestinal symptoms. 4. Leukocytosis/sepsis. RECOMMENDATIONS: 1. Obtain stool studies for ova parasites and stool cultures. 2. Advance diet as tolerated. 3. Discussed with the patient about an EGD and colonoscopy during this hospitalization to evaluate the abnormality of the esophagus noted on CAT scan of the abdomen that showed moderate to severe thickening of the distal esophagus and also to evaluate for the chronic diarrhea. 4. Repeat labs in the morning. 5. We will follow with you closely. Thank you for this consultation. MMODL / IJN: [id number] /
[2020-03-25] MEDS: PANTOPRAZOLE 40 MG TABLET PO SCH (08:06)
[2020-03-25] MEDS: THIAMINE 100 MG TAB PO SCH ×2 (08:06→17:16)
[2020-03-25] MEDS: HEPARIN SODIUM,PORCINE 5,000 UNIT/ML 1 ML VIAL SQ SCH ×2 (08:07→21:13)
[2020-03-25] MEDS: NICOTINE 14MG/24HR PATCH TRANSDERM SCH (08:07)
[2020-03-25 08:16] LABS: Basophils % (A) 0 %; Eosinophils # (A) 0.2 k/uL (0-0.7); Eosinophils % (A) 3 %; HCT 35.6 % (39.0-53.0); HGB 11.5 gm/dL (13.0-17.5); Lymphocytes % (A) 23 %; MCH 36.9 pg (25.0-35.0); MCHC 32.3 g/dL (31.0-37.0); MCV 114.5 fL (80.0-100.0); Macrocytosis Marked; Mean Platelet Volume 10.9; Monocytes # (A) 0.6 k/uL (0-1.0); Monocytes % (A) 7 %; Neutrophils # (A) 5.6 k/uL (1.3-7.7); Neutrophils % (A) 64 %; RBC 3.11 m/uL (4.30-5.90); RDW 14.2 % (11.5-15.5); WBC 8.6 k/uL (3.8-10.6)
[2020-03-25 08:27] LABS: Platelet Count 70 k/uL (150-450)
[2020-03-25 08:38] LABS: African American GFR (CKD) >90 (>60 ml/min/1.73 sqM); Anion Gap 7 mmol/L; Blood Urea Nitrogen 6 mg/dL (9-20); Calcium 7.6 mg/dL (8.4-10.2); Carbon Dioxide 23 mmol/L (22-30); Chloride 102 mmol/L (98-107); Glucose 87 mg/dL (74-99); Non-African American GFR(CKD) >90 (>60 ml/min/1.73 sqM); Potassium 2.8 mmol/L (3.5-5.1); Sodium 132 mmol/L (137-145)
[2020-03-25] MEDS ORDERED: Potassium Replacement Protocol 1 EACH MISC MISCELLANE PRN ×2 (10:57→20:29)
[2020-03-25] MEDS: POTASSIUM CHLORIDE ER 20 MEQ TAB.ER PO SCH ×5 (12:06→22:55)
[2020-03-25] MEDS: MULTIVITAMINS, THERA 1 EACH TAB PO SCH (12:06)
[2020-03-25] MEDS: SODIUM CHLORIDE 0.9% 1,000 ML IV SCH (12:07)
--- NOTE | 2020-03-25 12:48 | P.PN ---
Subjective Progress Note Date: 03/25/20 Principal diagnosis: Abnormal computed tomography scan of the abdomen, generalized weakness and diarrhea This is a pleasant 54-year-old white male whose mood the hospital because of progressive weakness. He had apparently fallen at a [employer] and injured himself, EMS was called and he was brought to the emergency department. He had slight confusion at the time of admission, but symptoms have resolved since. He's been complaining of diarrhea for the last 2 weeks duration about 4-5 loose watery bowel movements daily. No blood or mucus in the stool he denies any associated abdominal pain, nausea, or vomiting. He denies any difficulty with swallowing or weight loss. CT of the abdomen and pelvis was done that showed moderate to severe thickening of the mid and distal soft tissues as well as thickening of the sigmoid colon suspicious for colitis. Again he denies any dysphasia or odynophagia with no recent weight loss. He was seen and examined sitting up in the ICU. He denies any bowel movement through the night or this morning. Stool samples have been ordered but not collected. Denies any nausea, vomiting or abnormal pain. CT of the brain was completed that shows moderately severe cerebral atrophy for the patient's age. No acute intracranial abnorma lity. Objective - Vital Signs Vital signs: Vital Signs Temp 98.2 F 03/25/20 11:44 Pulse 109 H 03/25/20 11:44 Resp 18 03/25/20 11:44 BP 105/71 03/25/20 11:44 Pulse Ox 97 03/25/20 11:44 Intake & Output 03/24/20 03/25/20 03/25/20 18:59 06:59 18:59 Intake Total 750 Output Total 350 650 Balance 400 -650 Weight 71.5 kg Intake: IV 300 NS @ 100 300 Oral 450 Output: Urine 350 650 Other: Voiding Method Diaper Urinal Urinal Incontinent Diaper Diaper Incontinent Incontinent # Voids 2 # Bowel Movements 2 - Exam General appearance: The patient is alert, oriented, in no acute distress. HET: Head is normocephalic and atraumatic. Anterior lip pink. Sclerae anicteric. Neck: Supple without lymphadenopathy. Trachea midline. Abdomen: Soft, nontender, nondistended with bowel sounds. No palpable organ omegaly or masses. No guarding or rigidity. Extremities: Normal skin color and turgor. No pedal edema. Neurological: No focal deficits. Alert and oriented 3. - Labs CBC & Chem 7: 03/25/20 07:43 03/25/20 07:43 Labs: Abnormal Lab Results - Last 24 Hours (Table) 03/24/20 03/25/20 03/25/20 Range/Units 14:10 07:43 07:43 RBC 3.11 L (4.30-5.90) m/uL Hgb 11.5 L (13.0-17.5) gm/dL Hct 35.6 L (39.0-53.0) % MCV 114.5 H (80.0-100.0) fL MCH 36.9 H (25.0-35.0) pg Plt Count 70 L (150-450) k/uL Macrocytosis Marked A Sodium 132 L (137-145) mmol/L Potassium 2.8 L (3.5-5.1) mmol/L BUN 6 L (9-20) mg/dL Creatinine 0.55 L (0.66-1.25) mg/dL Calcium 7.6 L (8.4-10.2) mg/dL Urine Protein Trace H (Negative) Urine Ketones 2+ H (Negative) Urine Blood Moderate H (Negative) Urine RBC 86 H (0-5) /hpf Urine WBC 8 H (0-5) /hpf Urine Mucus Rare H (None) /hpf Microbiology - Last 24 Hours (Table) 03/23/20 17:20 Blood Culture - Preliminary Blood No Growth after 24 hours Assessment and Plan Assessment: 1. Diarrhea for the last 2 weeks duration. The patient's been having 5 loose bowel movements daily. No blood or mucus in the stool. Stool studies for Clostridium difficile toxin was negative. No recent travel or history of antibiotic use. No prior history of colonoscopy. Rule out infectious etiology. 2. Progressive weakness. 3. Abnormal CAT scan showing mild to moderate thickening of the mid and distal esophagus, the patient does not have any upper gastrointestinal symptoms 4. Leukocytosis/sepsis Plan: 1. Obtain stool studies for ova parasites and stool cultures. 2. Advance diet as tolerated 3. Discussed with patient about EGD and colonoscopy during this hospitalization to evaluate the abnormality of the esophagus noted on CAT scan of the abdomen which showed moderate to severe thickening of the distal esophagus and also to evaluate for chronic diarrhea, but patient wishes to have done as outpatient 4. Repeat labs in the morning 5. We will follow with you closely. 6. The patient is cleared from gastroenterology for discharge once medically stable. Patient may follow-up with Dr. Watts in 1-2 weeks to schedule outpatient EGD and colonoscopy. Thank you for this consultation. The impression and plan of care has been dictated as directed. Dr. Eloise Watts I performed a history and examination of this patient, discussed the same with the dictator. I agree with the dictator's note ,documented as a scribe. Any additional findings or plans will be noted.
--- NOTE | 2020-03-25 14:37 | P.PN ---
Subjective Progress Note Date: 03/25/20 Principal diagnosis: Generalized weakness, colitis, nausea vomiting, dehydration a 54-year-old male patient who was feeling very weak and he collapsed in a [employer] where he was trying to buy some punch juice for hydration. Apparently the patient was having ongoing nausea and vomiting and diarrhea for the past several days. He was getting progressively more dehydrated and weak. He denies having any abdominal pain. No reported fever chills or night sweats. No chest pain. No shortness of breath. There is no clear history of alcoholism although we were suspicious. The patient came into the emergency department and and the patient a low platelet count of 78 with a hemoglobin of 14.2. Potassium level was low at 2.6 and the serum bicarb was at 30 with a BUN of 10 and a creatinine of 0.5.the patient lactic acid level was at 6.5. The patient had normal LFTs, normal amylase and lipase, serum albumin was down to 3.2 with a total protein of 5.9.the urinalysis was positive for protein +2, positive for glucose +1 with 4 wbc's and 1 RBC. Stool was checked for C. diff and was negative. The borrero virus: 19 PCR testing came back also negative. Overnight, the patient was given a total of 3 L of IV fluids and currently normal saline is running at the rate of 100 mL an hour. Overnight the patient was also felt to be confused and he was placed on the CIWA protocol and he was given Ativan on a when necessary basis. Note that CAT scan of the abdomen and pelvis that was done in the ED showed colitis. There was mild to moderate multifocal on complicated acute colitis which is inconsistent with his symptoms of diarrhea. There was a small hiatal hernia and moderate to severe wall thickening of the distal esophagus. Noted along with fluid hydration, his lactic acid level is improved. This morning is fully awake and alert and following commands and answering questions. He denies drinking alcohol in excesscreatinine IV Zosyn as an empiric antibiotic coverage. On 03/25/2020 patient seen in follow-up in the intensive care unit, he is awake and alert, oriented 3, no confusion or agitation on today's exam, vital signs have been stable overnight, room air pulse ox is 97%, hemodynamically patient has been stable, no fever or chills, no difficulty breathing, patient is voiding, he had 4 episodes stools in the last 24 hours, that were loose. No blo od or mucus in the stool. No abdominal pain, no nausea or vomiting, CT of the abdomen and pelvis showed moderate to severe thickening of the mid and distal soft tissues as well as thickening of the sigmoid colon suspicious for colitis. GI service is following. CT brain showed no acute intracranial abnormality. Remains on IV fluids but 0.9 normal sed rate rate of 100 ML per hour. Patient required 1 dose of hold all last night. CIWA scale negative. Objective - Vital Signs Vital signs: Vital Signs Temp 98.2 F 03/25/20 11:44 Pulse 109 H 03/25/20 12:06 Resp 18 03/25/20 11:44 BP 105/71 03/25/20 11:44 Pulse Ox 97 03/25/20 11:44 Intake & Output 03/24/20 03/25/20 03/25/20 18:59 06:59 18:59 Intake Total 750 Output Total 350 650 Balance 400 -650 Weight 71.5 kg Intake: IV 300 NS @ 100 300 Oral 450 Output: Urine 350 650 Other: Voiding Method Diaper Urinal Urinal Incontinent Diaper Incontinent # Voids 2 # Bowel Movements 2 - Exam GENERAL EXAM: Alert, very pleasant 54-year-old white male, room air pulse ox of 97%, comfortable in no apparent distress. HEAD: Normocephalic/atraumatic. EYES: Normal reaction of pupils, equal size. Conjunctiva pink, sclera white. NOSE: Clear with pink turbinates. THROAT: No erythema or exudates. NECK: No masses, no JVD, no thyroid enlargement, no adenopathy. CHEST: No chest wall deformity. Symmetrical expansion. LUNGS: Equal air entry with no crackles, wheeze, rhonchi or dullness. CVS: Regular rate and rhythm, normal S1 and S2, no gallops, no murmurs, no rubs ABDOMEN: Soft, nontender. No hepatosplenomegaly, normal bowel sounds, no guarding or rigidity. EXTREMITIES: No clubbing, no edema, no cyanosis, 2+ pulses and upper and lower extremities. MUSCULOSKELETAL: Muscle strength and tone normal. SPINE: No scoliosis or deformity SKIN: No rashes CENTRAL NERVOUS SYSTEM: Alert and oriented -3. No focal deficits, tone is normal in all 4 extremities. PSYCHIATRIC: Alert and oriented -3. Appropriate affect. Intact judgment and insight. - Labs CBC & Chem 7: 03/25/20 07:43 03/25/20 07:43 Labs: Abnormal Lab Results - Last 24 Hours (Table) 03/24/20 03/25/20 03/25/20 Range/Units 14:10 07:43 07:43 RBC 3.11 L (4.30-5.90) m/uL Hgb 11.5 L (13.0-17.5) gm/dL Hct 35.6 L (39.0-53.0) % MCV 114.5 H (80.0-100.0) fL MCH 36.9 H (25.0-35.0) pg Plt Count 70 L (150-450) k/uL Macrocytosis Marked A Sodium 132 L (137-145) mmol/L Potassium 2.8 L (3.5-5.1) mmol/L BUN 6 L (9-20) mg/dL Creatinine 0.55 L (0.66-1.25) mg/dL Calcium 7.6 L (8.4-10.2) mg/dL Urine Protein Trace H (Negative) Urine Ketones 2+ H (Negative) Urine Blood Moderate H (Negative) Urine RBC 86 H (0-5) /hpf Urine WBC 8 H (0-5) /hpf Urine Mucus Rare H (None) /hpf Microbiology - Last 24 Hours (Table) 03/23/20 17:20 Blood Culture - Preliminary Blood No Growth after 24 hours Assessment and Plan Plan: Assessment: 1 acute generalized colitis with secondary nausea vomiting and intravascular volume depletion dehydration, improved with IV hydration. C. diff colitis ruled out 2 mild lactic acidosis, improving 3 dehydration secondary to above, improving and the patient has been resuscitated IV fluids 4 electrolyte imbalance secondary to diarrhea and electrodes are being replaced 5 history of alcoholism 6 altered mentation, improved. Rule out underlying metabolic encephalopathy. Rule out underlying delirium tremens. 7 hypertension 9 history of smoking Plan: Continue IV fluids, diarrhea has improved, patient is awake and alert, oriented 3, no confusion on today's exam, hemodynamically stable, today's labs have been reviewed, serum potassium will be replaced per protocol. No nausea or vomiting, or abdominal pain. Tolerating clear liquid diet, GI service is following, no ac cristiana issues overnight, will transfer the patient to general medical surgical floor. I performed a history & physical examination of the patient and discussed their management with my nurse practitioner, Maryam Fajardo. I reviewed the nurse practitioner's note and agree with the documented findings and plan of care. Lung sounds are positive for diminished breath sounds. The findings and the imp ression was discussed with the patient. I attest to the documentation by the nurse practitioner. Time with Patient: Less than 30
--- NOTE | 2020-03-25 18:41 | P.PN ---
Subjective Progress Note Date: 03/25/20 Principal diagnosis: Generalized weakness, colitis, nausea vomiting, dehydration 03/25/2020 patient seen in follow-up in the intensive care unit, he is awake and alert, oriented 3, no confusion or agitation on today's exam, vital signs have been stable overnight, room air pulse ox is 97%, hemodynamically patient has been stable, no fever or chills, no difficulty breathing, patient is voiding, he had 4 episodes stools in the last 24 hours, that were loose. No blood or mucus in the stool. No abdominal pain, no nausea or vomiting, CT of the abdomen and pelvis showed moderate to severe thickening of the mid and distal soft tissues as well as thickening of the sigmoid colon suspicious for colitis. GI service is following. CT brain showed no acute intracranial abnormality. Remains on IV fluids but 0.9 normal sed rate rate of 100 ML per hour. Patient required 1 dose of hold all last night. CIWA scale negative. Objective - Vital Signs Vital signs: Vital Signs Temp 98.1 F 03/25/20 15:00 Pulse 113 H 03/25/20 15:00 Resp 16 03/25/20 15:00 BP 111/78 03/25/20 15:00 Pulse Ox 99 03/25/20 15:00 Intake & Output 03/24/20 03/25/20 03/25/20 18:59 06:59 18:59 Intake Total 750 200 Output Total 350 650 500 Balance 400 -650 -300 Weight 71.5 kg Intake: IV 300 NS @ 100 300 Oral 450 200 Output: Urine 350 650 500 Other: Voiding Method Diaper Urinal Urinal Incontinent Diaper Incontinent # Voids 2 1 # Bowel Movements 2 - Exam HEAD: Normocephalic/atraumatic. EYES: Normal reaction of pupils, equal size. Conjunctiva pink, sclera white. NOSE: Clear with pink turbinates. THROAT: No erythema or exudates. NECK: No masses, no JVD, no thyroid enlargement, no adenopathy. CHEST: No chest wall deformity. Symmetrical expansion. LUNGS: Equal air entry with no crackles, wheeze, rhonchi or dullness. CVS: Regular rate and rhythm, normal S1 and S2, no gallops, no murmurs, no rubs ABDOMEN: Soft, nontender. No hepatosplenomegaly, normal bowel sounds, no guarding or rigidity. EXTREMITIES: No clubbing, no edema, no cyanosis, 2+ pulses and upper and lower extremities. - Labs CBC & Chem 7: 03/25/20 07:43 03/25/20 07:43 Labs: Abnormal Lab Results - Last 24 Hours (Table) 03/25/20 03/25/20 Range/Units 07:43 07:43 RBC 3.11 L (4.30-5.90) m/uL Hgb 11.5 L (13.0-17.5) gm/dL Hct 35.6 L (39.0-53.0) % MCV 114.5 H (80.0-100.0) fL MCH 36.9 H (25.0-35.0) pg Plt Count 70 L (150-450) k/uL Macrocytosis Marked A Sodium 132 L (137-145) mmol/L Potassium 2.8 L (3.5-5.1) mmol/L BUN 6 L (9-20) mg/dL Creatinine 0.55 L (0.66-1.25) mg/dL Calcium 7.6 L (8.4-10.2) mg/dL Microbiology - Last 24 Hours (Table) 03/23/20 17:20 Blood Culture - Preliminary Blood No Growth after 24 hours Assessment and Plan Assessment: 1 acute generalized colitis with secondary nausea vomiting and intravascular volume depletion dehydration, improved with IV hydration. C. diff colitis ruled out 2 mild lactic acidosis, improving 3 dehydration secondary to above, improving and the patient has been resuscitated IV fluids 4 electrolyte imbalance secondary to diarrhea and electrodes are being replaced 5 history of alcoholism 6 altered mentation, improved. Rule out underlying metabolic encephalopathy. Rule out underlying delirium tremens. 7 hypertension Continue IV fluids, diarrhea has improved, patient is awake and alert, oriented 3, no confusion on today's exam, hemodynamically stable, today's labs have been reviewed, serum potassium will be replaced per protocol. No nausea or vomiting, or abdominal pain. Tolerating clear liquid diet, GI service is following, no acute issues overnight, will transfer the patient to general medical surgical floor.
[2020-03-25 19:45] LABS: Magnesium 1.6 mg/dL (1.6-2.3)
[2020-03-25 19:48] LABS: Potassium 2.6 mmol/L (3.5-5.1)
[2020-03-25] MEDS: POTASSIUM CHLORIDE IVPB SCH (21:12)
[2020-03-25] MEDS: MAGNESIUM SULFATE-D5W PMX 1 GM in DEXTROSE/WATER 1 100ML.BAG IVPB SCH ×2 (21:12→22:55)
[2020-03-25] MEDS: WATER FOR INJECTION IVPB SCH (21:12)
[2020-03-26] MEDS: POTASSIUM CHLORIDE ER 20 MEQ TAB.ER PO SCH ×3 (00:13→14:21)
[2020-03-26] MEDS: WATER FOR INJECTION IVPB SCH (00:13)
[2020-03-26] MEDS: POTASSIUM CHLORIDE IVPB SCH (00:13)
[2020-03-26] MEDS: PIPERACILLIN-TAZOBACTAM 3.375 GM in SODIUM CHLORIDE 0.9% 100 ML IVPB SCH ×2 (02:02→08:06)
[2020-03-26 02:14] VITALS: TEMP 98.7
[2020-03-26 02:33] LABS: Magnesium 2.1 mg/dL (1.6-2.3); Potassium 3.6 mmol/L (3.5-5.1)
[2020-03-26] MEDS: HEPARIN SODIUM,PORCINE 5,000 UNIT/ML 1 ML VIAL SQ SCH (08:05)
[2020-03-26] MEDS: NICOTINE 14MG/24HR PATCH TRANSDERM SCH (08:05)
[2020-03-26] MEDS: THIAMINE 100 MG TAB PO SCH (08:05)
[2020-03-26] MEDS: PANTOPRAZOLE 40 MG TABLET PO SCH (08:05)
[2020-03-26] MEDS: MULTIVITAMINS, THERA 1 EACH TAB PO SCH (08:05)
[2020-03-26] MEDS: SODIUM CHLORIDE 0.9% 1,000 ML IV SCH (08:06)
[2020-03-26] MEDS ORDERED: POTASSIUM CHLORIDE ER 20 MEQ TAB.ER PO SCH (09:00)
--- NOTE | 2020-03-26 10:30 | PN ---
PROGRESS NOTE DATE OF DICTATION: March 26, 2020. REQUESTING PHYSICIAN: Dr. Mccallum HISTORY OF PRESENT ILLNESS: The patient is a 54-year-old pleasant white male admitted to hospital following a fall with altered mental status. He is doing well. He denies any symptoms. CT scan showed thickened esophagus. Recommended an EGD, but patient wants to do it as an outpatient basis. In the meantime, his diarrhea has resolved. Overall doing well. PHYSICAL EXAMINATION: Appears comfortable. VITAL SIGNS: Stable. Blood pressure is 131/80, pulse rate 94, temperature 98.7. HEENT examination unremarkable. Conjunctivae pink. Sclerae anicteric. Oral cavity no lesions. NECK: No JVD or lymph node enlargement. CHEST was clear to auscultation. HEART: Regular rate and rhythm. ABDOMEN: Soft. Bowel sounds are positive. No organomegaly. EXTREMITIES: No pedal edema. NEUROLOGIC: Alert and oriented x3. No focal deficits. LABS: From today WBC 8.6, hemoglobin 11.5, platelets 72. Sodium 132, potassium 3.6. Rest of the labs are within normal limits. BUN and creatinine are normal. IMPRESSION: 1. Diarrhea, resolved. 2. Macrocytic anemia. 3. Thrombocytopenia, rule out underlying liver disease. 4. Thickened esophagus on recent CT scan of the abdomen, but he denies any upper GI symptoms. RECOMMENDATIONS: 1. Advance to a regular diet. 2. He can be discharged home today. 3. Outpatient followup in 2 weeks. 4. We will plan on EGD and colonoscopy on an outpatient basis. Thank you for this consultation. MMODL / IJN: [id number] /
[2020-03-26 10:32] LABS: Albumin 2.7 g/dL (3.80-4.90); Albumin/Globulin Ratio 1.69 (1.60-3.17); Anion Gap 4.7 mmol/L (4.00-12.00); BUN/Creat Ratio 8.33 Ratio (12.00-20.00); Calcium 7.6 mg/dL (8.7-10.3); Carbon Dioxide 27.3 mmol/L (21.6-31.8); Globulin 1.6 g/dL (1.6-3.3); Non-African American GFR(CKD) 114.8 (60.0-200.0); Potassium 3.4 mmol/L (3.5-5.5); Total Bilirubin 0.6 mg/dL (0.2-1.2); Total Protein 4.3 g/dL (6.2-8.2)
--- NOTE | 2020-03-26 13:27 | P.PN ---
Subjective Progress Note Date: 03/26/20 Principal diagnosis: Generalized weakness, colitis, nausea vomiting dehydration a 54-year-old male patient who was feeling very weak and he collapsed in a [employer] where he was trying to buy some punch juice for hydration. Apparently the patient was having ongoing nausea and vomiting and diarrhea for the past several days. He was getting progressively more dehydrated and weak. He denies having any abdominal pain. No reported fever chills or night sweats. No chest pain. No shortness of breath. There is no clear history of alcoholism although we were suspicious. The patient came into the emergency department and and the patient a low platelet count of 78 with a hemoglobin of 14.2. Potassium level was low at 2.6 and the serum bicarb was at 30 with a BUN of 10 and a creatinine of 0.5.the patient lactic acid level was at 6.5. The patient had normal LFTs, normal amylase and lipase, serum albumin was down to 3.2 with a total protein of 5.9.the urinalysis was positive for protein +2, positive for glucose +1 with 4 wbc's and 1 RBC. Stool was checked for C. diff and was negative. The borrero virus: 19 PCR testing came back also negative. Overnight, the patient was given a total of 3 L of IV fluids and currently normal saline is running at the rate of 100 mL an hour. Overnight the patient was also felt to be confused and he was placed on the CIWA protocol and he was given Ativan on a when necessary basis. Note that CAT scan of the abdomen and pelvis that was done in the ED showed colitis. There was mild to moderate multifocal on complicated acute colitis which is inconsistent with his symptoms of diarrhea. There was a small hiatal hernia and moderate to severe wall thickening of the distal esophagus. Noted along with fluid hydration, his lactic acid level is improved. This morning is fully awake and alert and following commands and answering questions. He denies drinking alcohol in excesscreatinine IV Zosyn as an empiric antibiotic coverage. On 03/25/2020 patient seen in follow-up in the intensive care unit, he is awake and alert, oriented 3, no confusion or agitation on today's exam, vital signs have been stable overnight, room air pulse ox is 97%, hemodynamically patient has been stable, no fever or chills, no difficulty breathing, patient is voiding, he had 4 episodes stools in the last 24 hours, that were loose. No blood or mucus in the stool. No abdominal pain, no nausea or vomiting, CT of the abdomen and pelvis showed moderate to severe thickening of the mid and distal soft tissues as well as thickening of the sigmoid colon suspicious for colitis. GI service is following. CT brain showed no acute intracranial abnormality. Remains on IV fluids but 0.9 normal sed rate rate of 100 ML per hour. Patient required 1 dose of hold all last night. CIWA scale negative. The patient was seen today 03/26/2020 in follow-up on the selective care unit. He is currently resting quite comfortably in bed. Awake and alert in no acute distress. No worsening shortness of breath, cough or congestion. Maintaining O2 saturations up to 100% on room air. He's been afebrile. Hemodynamically stable. Blood culture reveals no growth. Sodium 136. Potassium 3.4. Creatinine 0.6. He is feeling stronger. Objective - Vital Signs Vital signs: Vital Signs Temp 98.7 F 03/26/20 07:00 Pulse 94 03/26/20 07:00 Resp 16 03/26/20 07:00 BP 131/89 03/26/20 07:00 Pulse Ox 99 03/26/20 07:00 Intake & Output 03/25/20 03/26/20 03/26/20 18:59 06:59 18:59 Intake Total 200 520 Output Total 500 650 Balance -300 -650 520 Intake: IV 200 Piperacillin-Tazobactam 3 200 .375 gm In Sodium Chloride 0.9% 100 ml @ 25 mls/hr IVPB Q8HR [facility] Rx# :[id number] Oral 200 320 Output: Urine 500 650 Other: Voiding Method Urinal Urinal # Voids 1 1 - Exam GENERAL EXAM: Alert, very pleasant 54-year-old male patient, room air pulse ox of 99%, comfortable in no apparent distress. HEAD: Normocephalic/atraumatic. EYES: Normal reaction of pupils, equal size. Conjunctiva pink, sclera white. NOSE: Clear with pink turbinates. THROAT: No erythema or exudates. NECK: No masses, no JVD, no thyroid enlargement, no adenopathy. CHEST: No chest wall deformity. Symmetrical expansion. LUNGS: Equal air entry with no crackles, wheeze, rhonchi or dullness. CVS: Regular rate and rhythm, normal S1 and S2, no gallops, no murmurs, no rubs ABDOMEN: Soft, nontender. No hepatosplenomegaly, normal bowel sounds, no guarding or rigidity. EXTREMITIES: No clubbing, no edema, no cyanosis, 2+ pulses and upper and lower extremities. MUSCULOSKELETAL: Muscle strength and tone normal. SPINE: No scoliosis or deformity SKIN: No rashes CENTRAL NERVOUS SYSTEM: Alert and oriented -3. No focal deficits, tone is normal in all 4 extremities. PSYCHIATRIC: Alert and oriented -3. Appropriate affect. Intact judgment and insight. - Labs CBC & Chem 7: 03/25/20 07:43 03/26/20 07:03 Labs: Abnormal Lab Results - Last 24 Hours (Table) 03/25/20 03/26/20 Range/Units 19:02 07:03 Potassium 2.6 L* 3.4 L (3.5-5.1) mmol/L BUN 5.0 L (9.0-27.0) mg/dL BUN/Creatinine Ratio 8.33 L (12.00-20.00) Ratio Calcium 7.6 L (8.7-10.3) mg/dL Total Protein 4.3 L (6.2-8.2) g/dL Albumin 2.70 L (3.80-4.90) g/dL Microbiology - Last 24 Hours (Table) 03/23/20 17:20 Blood Culture - Preliminary Blood No Growth after 48 hours Assessment and Plan Assessment: 1 acute generalized colitis with secondary nausea vomiting and intravascular volume depletion dehydration, improved with IV hydration. C. diff colitis ruled out 2 mild lactic acidosis, improving 3 dehydration secondary to above, improving and the patient has been resuscitated IV fluids 4 electrolyte imbalance secondary to diarrhea and electrodes are being replaced 5 history of alcoholism 6 altered mentation, improved. Rule out underlying metabolic encephalopathy. Rule out underlying delirium tremens. 7 hypertension 9 history of smoking Plan: The patient was seen and evaluated by Dr. Layton He is stable from the pulmonary standpoint Cleared for discharge from the pulmonary standpoint Can be switched to Augmentin We'll see as needed I, the cosigning physician, performed a history & physical examination of the patient. Lungs sounds are clear. Maintaining good O2 saturations in the 90s on room air. I discussed the assessment and plan of care with my nurse practitioner, Racehl Sanchez. I attest to the above note as dictated by her.
[2020-03-26 14:54] VITALS: BP 110/71; PULSE 86; RESP 20
--- NOTE | 2020-03-28 15:25 | CDI ---
Date: 03/28/20 From: LUIZA Joaquin; Yudith Eli, [employer] Phone: If you have any questions about this query, please contact Yudith Eli at [phone] between 8 am and 5 pm. Admit Date: 03/23/20 Patient Name: Jacob Garg Visit Number [id number] Discharge Date: 03/26/[address] Conte, The patient presented with severe dehydration, diarrhea, hyponatremia and change in mental status. Possible sepsis is documented on H&P. History/Risk Factors: Hypertension, smoking, noncompliance with medications. Clinical Indicators: Mental status changes, hyponatremia, weakness, diarrhea. WBC 21 Lactic acid: 6.5 Blood cultures: negative Vitals signs on admission: Pulse 115, BP 128/104, resp 18 temp 99. Treatment: Antibiotics Antibiotics: Penicillin IV Bolus: 1000 mls per hour In your professional opinion, please clarify if these findings signify one of the following conditions, whether the condition is POA, and cause, if known: Condition Sepsis ruled out SIRS, without underlying infectious process Sepsis Severe Sepsis Septic Shock Other, please specify Unable to determine Present on Admission Yes No Identify the (suspected) organism Link or clarify if there is associated (due to/with): Organ failure Shock SIRS Criteria (2 or more of the following may indicate SIRS): -Temperature < 96.8F (36C) or > 101.0F (38.3C) -Heart Rate > 90 bpm -Respiratory Rate > 20 breaths/min or PaCO2 < 32 mmHg -White Blood Cell Count > 12,000 or < 4,000 cells/mm3 or > 10% bands -Lactate >2.0 mmol/L (>4.0 is equivalent to septic shock) (Last Revision: October 2017) Sepsis ruled out MTDD
== END 2020-03-26 17:02 | disposition home or self-care (01) | DRG 391 ==
LOC: EC 13:31 → 2SICU 16:07 → 4SSUR 03-25 11:40
PROVIDERS: ADMIT Hospitalist; ATTEND Hospitalist
DX: K52.89 Other specified noninfective gastroenteritis and colitis (principal); G93.41 Metabolic encephalopathy; E87.1 Hypo-osmolality and hyponatremia; E87.2 Acidosis; D69.6 Thrombocytopenia, unspecified; E88.09 Other disorders of plasma-protein metabolism, not elsewhere classified; D53.9 Nutritional anemia, unspecified; E83.42 Hypomagnesemia; E86.0 Dehydration; E87.6 Hypokalemia; F17.200 Nicotine dependence, unspecified, uncomplicated; I10 Essential (primary) hypertension; K44.9 Diaphragmatic hernia without obstruction or gangrene; W19.XXXA Unspecified fall, initial encounter; Z91.14 Patient's other noncompliance with medication regimen; Z91.19 Patient's noncompliance with other medical treatment and regimen; Z20.828 Contact with and (suspected) exposure to other viral communicable diseases
CPT/HCPCS: 36415; 70450; 71046; 74177; 80048; 80053; 80320; 81001; 83605; 83690; 83735; 84132; 85025; 85610; 87040; 87324; 93005; 96360; 96366; 96368; 96375; 99285